=== PATIENT | female | born 1960 | race Caucasian/White ===

== ENCOUNTER 2018-12-13 12:07 | Outpatient (CLI) | payer OTHER ==
--- NOTE | 2018-12-13 12:39 | RAD ---
Exam: Lumbar spine 3 views History: Disability evaluation. FINDINGS: Five lumbar type vertebral bodies. Vertebral body height is maintained. No fracture. No spo ndylolisthesis or spondylolysis. There are degenerative change posterior elements at 4-L5 and L5-S1. Osteophyte formation the distal thoracic spine is noted with possible vacuum disc phenomenon at the T 11-T12 level. IMPRESSION: Degenerative changes lumbar spine as described above Transcribed Date/Time: 12/13/2018 12:45 PM
--- NOTE | 2018-12-13 13:04 | RAD ---
CERVICAL SPINE FOUR VIEWS: HISTORY: Disability evaluation. FINDINGS: On the AP projection, there is evidence of degenerative change of the facets. Calcification in the l eft neck soft tissues may be due to atherosclerotic disease. The open-mouth projection demonstrates appropriate alignment of the lateral masses of C1 and C2. The base of the odontoid process is intact. The tip of the odontoid process is obscured. Swimmer's view is suboptimal. In the lateral position, the cervical spine is assessed from C1 throug h C6. Limited evaluation of the C6-C7 disk space, the C7 vertebral body, and the cervicothoracic kasey ction. The visualized cervical spine demonstrates preservation of vertebral body height, without kathryn dence of fracture. No significant loss of disk space height. There is a prominent osteophyte anteri rafael at the C5-C6 disk space. There is no prevertebral soft tissue swelling. IMPRESSION: No fracture or significant loss of disk space height. Osteophyte formation at C5-C6. Of note, the e ntire cervical spine is not assessed. MRI is clinically warranted. POS: OFF
== END 2018-12-13 12:08 | disposition home or self-care (01) ==
LOC: NAV RAD 12:07
PROVIDERS: ATTEND Family Medicine
DX: Z02.71 Encounter for disability determination (principal); M54.2 Cervicalgia; M47.26 Other spondylosis with radiculopathy, lumbar region; M47.27 Other spondylosis with radiculopathy, lumbosacral region
CPT/HCPCS: 72040; 72100